=== PATIENT | female | born 1995 | race Caucasian/White ===

== ENCOUNTER 2019-03-13 01:19 | Inpatient (IN) ==
[2019-03-13] MEDS ORDERED: TYLENOL PO PRN (01:48)
[2019-03-13] MEDS ORDERED: PEPCID PO PRN (01:48)
[2019-03-13] MEDS ORDERED: PEPCID IV PRN (01:48)
[2019-03-13] MEDS ORDERED: PEPCID PO ONE (01:48)
[2019-03-13] MEDS ORDERED: ZOFRAN IV PRN (01:48)
[2019-03-13] MEDS ORDERED: REGLAN PO ONE (01:48)
[2019-03-13] MEDS ORDERED: STADOL IV PRN (01:48)
[2019-03-13] MEDS ORDERED: LR 1,000 ML IV SCH (02:00)
[2019-03-13] MEDS ORDERED: CLINDAMYCIN 900 MG/D5W 900 MG/50 ML IVPB IV SCH (02:00)
[2019-03-13] MEDS ORDERED: SODIUM CHLORIDE 0.9% INJ SCH (02:00)
[2019-03-13] MEDS ORDERED: PITOCIN 30 UNITS/NS 30 UNIT/500 ML IV.SOLN IV SCH ×2 (02:00→03:30)
[2019-03-13] MEDS ORDERED: MINERAL OIL MISC ONE (02:37)
[2019-03-13] MEDS ORDERED: XYLOCAINE-MPF 1% INJ ONE (02:37)
[2019-03-13 02:39] LABS: URINE SOURCE VOIDED
[2019-03-13 02:41] LABS: BASO# 0.03 X1000 (0.0-0.2); BASO% 0.2 % (0.0-0.8); EOS# 0.13 X1000 (0.0-0.7); EOS% 0.8 % (0.0-10.0); HEMATOCRIT 35.7 % (37.0-47.0); HEMOGLOBIN 12.4 g/dL (12.0-16.0); IMM GRAN# 0.08 X1000 (0.0-0.04); IMM GRAN% 0.5 % (0.0-0.5); LYMPH# 2.09 X1000 (1.2-3.4); LYMPH% 12.1 % (20.5-51.1); MCH 31.6 PG (27-31); MCHC 34.7 g/dL (33-37); MCV 90.8 FL (81-99); MONO# 1.01 X1000 (0.11-0.59); MONO% 5.8 % (1.7-9.3); MPV 10.3 FL (7.4-10.4); NEUT# 13.93 X1000 (1.4-6.5); NEUT% 80.6 % (42.2-75.2); PLT 290 X1000 (130-400); RBC 3.93 XMIL (4.2-5.4); WBC 17.27 X1000 (4.8-10.8)
[2019-03-13 02:57] LABS: BILIRUBIN URINE NEGATIVE (NEGATIVE); BLOOD URINE 2+ (NEGATIVE); CLARITY CLEAR (CLEAR); COLOR ORANGE; KETONE URINE NEGATIVE (NEGATIVE); LEUKOCYTES URINE NEGATIVE (NEGATIVE); NITRITE URINE NEGATIVE (NEGATIVE); PROTEIN URINE NEGATIVE (NEGATIVE); SP GRAVITY URINE 1.025; UROBILINOGEN URINE NORMAL
[2019-03-13 02:58] LABS: GLUCOSE URINE NEGATIVE (NEGATIVE)
[2019-03-13 03:11] LABS: UR AMPHETAMINES QUAL NONE DETECTED (NONE DETECT); UR BARBITUATES QUAL NONE DETECTED (NONE DETECT); UR BENZODIAZEPIN QUAL NONE DETECTED (NONE DETECT); UR CANNABINOIDS QUAL NONE DETECTED (NONE DETECT); UR COCAINE QUAL NONE DETECTED (NONE DETECT); UR METHADONE QUAL NONE DETECTED (NONE DETECT); UR METHAMPHETAMINE QUAL NONE DETECTED (NONE DETECT); UR OPIATES QUAL NONE DETECTED (NONE DETECT); UR OXYCODONE QUAL NONE DETECTED (NONE DETECT); UR PCP QUAL NONE DETECTED (NONE DETECT); UR PROPOXYPHENE QUAL NONE DETECTED (NONE DETECT); UR TCA QUAL NONE DETECTED (NONE DETECT)
[2019-03-13] MEDS ORDERED: CYTOTEC PO PRN (03:20)
[2019-03-13] MEDS ORDERED: BOOSTRIX VACCINE IM ONE (03:20)
[2019-03-13] MEDS ORDERED: M-M-R II VACCINE SUBQ ONE (03:20)
[2019-03-13] MEDS ORDERED: AMBIEN PO PRN (03:20)
[2019-03-13] MEDS ORDERED: PERCOCET-10 PO PRN (03:20)
[2019-03-13] MEDS ORDERED: BENADRYL IV PRN (03:20)
[2019-03-13] MEDS ORDERED: XYLOCAINE-MPF 1% INJ PRN (03:20)
[2019-03-13] MEDS ORDERED: PERCOCET-5 PO PRN (03:20)
[2019-03-13] MEDS ORDERED: ATARAX PO PRN (03:20)
[2019-03-13] MEDS ORDERED: BENADRYL PO PRN (03:20)
[2019-03-13] MEDS ORDERED: HYDROXYZINE IM PRN (03:20)
[2019-03-13] MEDS ORDERED: PITOCIN IM PRN (03:20)
[2019-03-13] MEDS ORDERED: PITOCIN 20 UNITS/NS 20 UNITS/1,000 ML IV.SOLN IV SCH (03:30)
--- NOTE | 2019-03-13 03:58 | HISTORY AND PHYSICAL ---
CHIEF COMPLAINT: Rupture of membranes and contractions. HISTORY OF PRESENT ILLNESS: Ms. John is a 23-year-old 2, para 1, at 36 weeks and 1 day with care complicated by Rh negative status, depression on Celexa and morbid obesity, who presented to Labor and Delivery with complaint of ruptured membranes. The patient was found to be grossly ruptured and dilated to 6 cm with contractions every 2 to 3 minutes. The patient reports an active baby. Denies vaginal bleeding or PIH symptoms. PAST MEDICAL HISTORY: Denies. PAST SURGICAL HISTORY: Denies. ALLERGIES: Augmentin. SOCIAL HISTORY: Noncontributory. FAMILY HISTORY: Noncontributory. PHYSICAL EXAMINATION: VITAL SIGNS: Afebrile. Vital signs stable. GENERAL: Alert and oriented, no acute distress. PULMONARY: Clear to auscultation bilaterally. CARDIOVASCULAR: Regular rate and rhythm. ABDOMEN: Soft, nondistended, gravid. EXTREMITIES: 1+ bilateral lower extremity edema. GENITOURINARY: heart tones reassuring. Cervix 6, 90 and -2. Grossly ruptured. Clear fluid. Tocometry, every 2 to 3 minutes. LABORATORIES: White count 17.2, hemoglobin 12.4, hematocrit 35.7, platelets 290,000. UDS negative. ASSESSMENT: Again, this is a 23-year-old 3, para 1, at 36 weeks and 1 day, who presented with active labor. PLAN: 1. Ampicillin for GBS status unknown. 2. Anticipate vaginal delivery. 3. Desires fertility. cc: Barney Knox MD
--- NOTE | 2019-03-13 04:17 | OPERATIVE NOTE ---
PROCEDURE DATE: 03/13/2019 DELIVERY NOTE: Ms John is a 23-year-old, 2, para 1, at 36 weeks and 1 day with care complicated by Rh negative status, depression on Celexa, and morbid obesity, who presented with spontaneous onset of labor. The patient arrived grossly ruptured, clear fluid at 6 cm. She progressed to complete, complete, +3. She had a spontaneous vaginal delivery of an infant male over a midline first-degree laceration. Nuchal x1 was reduced at the perineum. The cord was clamped and cut, and the was passed to the waiting nurse. The placenta was manually extracted. The first-degree laceration was repaired in the usual fashion with 2-0 Vicryl using local lidocaine anesthetic. Hemostasis was noted. Correct sponge, needle, and instrument counts x3. No complications. ESTIMATED BLOOD LOSS: 300 mL. cc: Barney Knox MD
[2019-03-13] MEDS: MOTRIN PO PRN ×2 (09:05→19:18)
[2019-03-13] MEDS: PRECARE PO SCH (21:39)
[2019-03-13] MEDS: PERICOLACE PO SCH (21:39)
[2019-03-13] MEDS: PERI MEDS (DERMOPLAST/NUPERCAINAL/TUCKS) MISC PRN (21:39)
[2019-03-14] MEDS: MOTRIN PO PRN ×3 (04:45→20:45)
[2019-03-14 06:39] LABS: BASO# 0.03 X1000 (0.0-0.2); BASO% 0.2 % (0.0-0.8); EOS# 0.28 X1000 (0.0-0.7); HEMATOCRIT 36.9 % (37.0-47.0); HEMOGLOBIN 12.5 g/dL (12.0-16.0); IMM GRAN# 0.11 X1000 (0.0-0.04); IMM GRAN% 0.8 % (0.0-0.5); LYMPH# 2.99 X1000 (1.2-3.4); LYMPH% 21.2 % (20.5-51.1); MCH 31.3 PG (27-31); MCHC 33.9 g/dL (33-37); MCV 92.5 FL (81-99); MONO# 1.01 X1000 (0.11-0.59); MONO% 7.2 % (1.7-9.3); MPV 10.5 FL (7.4-10.4); NEUT# 9.69 X1000 (1.4-6.5); NEUT% 68.6 % (42.2-75.2); PLT 283 X1000 (130-400); RBC 3.99 XMIL (4.2-5.4); RDW 13.1 % (11.5-14.5); WBC 14.11 X1000 (4.8-10.8)
--- NOTE | 2019-03-14 08:44 | OB/GYN PROGRESS NOTE ---
Progress Note OB - . Patient Problems: Current Active Problems Problem Status Onset (spontaneous vaginal delivery) Acute premature rupture of membranes (PPROM) delivered, current hospitalization Acute OB Progress Note: Vital Signs - 24 hr 03/13/19 12:00 03/13/19 16:47 03/13/19 20:50 Temperature 97.6 F 97.6 F 98 F Pulse Rate 105 H 105 H 115 H Respiratory Rate 18 18 18 Blood Pressure 142/65 123/72 144/77 O2 Sat by Pulse Oximetry 99 99 96 03/14/19 00:55 03/14/19 07:45 03/14/19 07:47 Temperature 98 F 96.4 F L Pulse Rate 107 H 113 H Respiratory Rate 18 18 Blood Pressure 123/66 166/86 187/91 O2 Sat by Pulse Oximetry 98 97 03/14/19 08:20 Temperature Pulse Rate Respiratory Rate Blood Pressure 130/73 O2 Sat by Pulse Oximetry Laboratory Results - last 24 hr 03/14/19 03/14/19 05:18 05:18 WBC 14.11 H RBC 3.99 L Hgb 12.5 Hct 36.9 L MCV 92.5 MCH 31.3 H MCHC 33.9 RDW Std Deviation 13.1 Plt Count 283 MPV 10.5 H Immature Gran % (Auto) 0.8 H Neut % (Auto) 68.6 Lymph % (Auto) 21.2 Foard % (Auto) 7.2 Eos % (Auto) 2.0 Baso % (Auto) 0.2 Immature Gran # (Auto) 0.11 H Neut # (Auto) 9.69 H Lymph # (Auto) 2.99 Foard # (Auto) 1.01 H Eos # (Auto) 0.28 Baso # (Auto) 0.03 ABO/Rh A NEGATIVE RhIG Candidate? YES S: Patient without complaints. Denied fever, chills, N/V, SOB, or chest pain. Denied H/A, visual changes, or abdominal pain. Lochia scant. Pain controlled. Voiding without difficulty. Tolerating PO. Fomula-feeding by choice. O: Gen: NAD; AAOx3 CV: RRR Pulm: CTAB; no rhonchi, wheezing, or rales Abd: soft, non TTP; non-distended; active bowel sounds; fundus firm and below umbilicus Ext: no LE TTP Labs: reviewed A&P: 23yo s/p at 36w1d due to PPROM, labor, 1. PPD#1 -BPs normal to severe range, but non-sustained. No symptoms of Pre-E. Will continue to monitor BPs -Patient desires future fertility. Discussed in establishing early care and use of [employer] during her next , as pt at risk for future pre-term deliveries 2. Depression -Patient discontinued Celexa in 3rd trimester by choice. Plans to resume SSRI -No HI/SI 3. Rh NEGATIVE - screen negative -RhoGAM needed 4. 1hr GTT 135 -2h GTT
[2019-03-14] MEDS ORDERED: PERCOCET-5 PO PRN (08:53)
[2019-03-14] MEDS ORDERED: NORCO-5 PO PRN (08:55)
[2019-03-14] MEDS: PERI MEDS (DERMOPLAST/NUPERCAINAL/TUCKS) MISC PRN (16:38)
[2019-03-14] MEDS: PRECARE PO SCH (20:45)
[2019-03-14] MEDS: PERICOLACE PO SCH (20:45)
[2019-03-15] MEDS: MOTRIN PO PRN (07:38)
[2019-03-15 07:46] VITALS: BP 122/69
--- NOTE | 2019-03-15 10:04 | DISCHARGE SUMMARY ---
ADMISSION DATE: 03/13/2019 DISCHARGE DATE: 03/15/2019 ADMISSION DIAGNOSIS: A 23-year-old white female 3, para 1 at 36 weeks and 1 day in active labor. DISCHARGE DIAGNOSIS: A 23-year-old white female 3, para 1 at 36 weeks and 1 day in active labor with vaginal delivery of a male on 03/13/2019, viable. PROCEDURE: Spontaneous vaginal delivery. BRIEF HISTORY: The patient is a 23-year-old white female, G3, P1, A1 at 36 weeks and 1 day. care complicated by Rh-negative status, depression, morbid obesity. The patient presents with complaints of ruptured membranes. The patient grossly ruptured, noted to be 6 cm. PAST MEDICAL HISTORY: Depression. PAST SURGICAL HISTORY: None. ALLERGIES: Augmentin. SOCIAL HISTORY: Noncontributory. FAMILY HISTORY: Noncontributory. PHYSICAL EXAMINATION: Vital Signs: Afebrile. Vital signs stable. General: Alert and oriented x3. Pulmonary: Lungs clear to auscultation. Heart: Regular rate and rhythm. Abdomen: Gravid, nontender. Extremities: 1+ lower extremity edema. Cervical: Cervix was 6 cm dilated, 90% effaced, -2 station and grossly ruptured. ASSESSMENT: A 23-year-old white female, 3, para 1, 1 at 36 and 1/7 weeks, presents in active labor. The patient will be admitted for possible vaginal delivery and will start group B strep prophylaxis due to unknown status as well as rupture. HOSPITAL COURSE: The patient then progressed to have a vaginal delivery of a viable male on 03/13/2019 without complications. Patient's hospital course was unremarkable. Her hemoglobin was 12.5 and hematocrit was 36.9. The patient had stable vital signs and was afebrile on day #2 it was felt she could be discharged home. DISCHARGE PLANS: Patient will be discharged home. Follow up in 6 weeks for check. Patient instructed on pelvic rest, lifting precautions and to call for any temperature greater than 101 degrees, heavy vaginal bleeding, or severe abdominal pain. The patient was given prescriptions for [place] 5, Colace 100 mg, Motrin 800 mg and Celexa 20 mg. cc: MD Barney Ramsay III, MD
== END 2019-03-15 11:45 | disposition home or self-care (01) | DRG 807 ==
LOC: P.OPLD 01:19 → P.LD 01:20
PROVIDERS: ADMIT Obstetrics & Gynecology; ATTEND Obstetrics & Gynecology